=== PATIENT | female | born 1950 | race Caucasian/White ===

== ENCOUNTER 2018-02-24 23:10 | Emergency (ER) | payer OTHER ==
[~2018-02-24] VITALS: Ht 162.6 cm; Wt 69.0 kg
[2018-02-24 23:11] VITALS: BP 161/70; PULSE 57; TEMP 36.4; O2SAT 98; Ht 162.6 cm; Wt 69.0 kg
--- NOTE | 2018-02-24 23:37 | EMERGENCY ROOM VISIT NOTE ---
History Report prepared by Scribe: Brian Loyola Under the Supervision of: Dr. Maryjane Vega D.O. First contact with patient: 23:18 Chief Complaint: BITE Stated Complaint: TICK History of Present Illness The patient is a 67 year old female who presents to the Emergency Room with complaints of episodic tick bite, which she noticed at 2100 today while taking a shower. She was outside this afternoon. [place] [facility]. She notes that the site is red and swollen. She removed part of the insect with a tick twister device. She notes the bite is on her chest on the right side. She denies any history of Lyme disease. She notes that she has been bitten in the past at least twice a year. Source of History: patient Onset: 2099 today Position: chest (right side) Quality: other (swollen and red) Timing: other (episodic) Review of Systems The patient denies any associated symptoms at this time. Past Medical & Surgical Medical Problems: (1) No Known Active Medical Problems Family History No pertinent family history Social History Smoking Status: Never Smoker Housing Status: lives with family Occupation Status: unemployed Allergies Coded Allergies: Penicillins (Verified Allergy, Intermediate, rash, 02/24/18) Physical Exam Vital Signs Date Time Temp Pulse Resp B/P (MAP) Pulse Ox O2 Delivery O2 Flow Rate FiO2 02/24/18 23:11 36.4 57 18 161/70 98 Room Air Physical Exam Right anterior chest wall: remnant portion of tick with some mild surrounding erythema Medical Decision & Procedures ED Course 2318: Past medical records reviewed. The patient was evaluated in room B11B. A complete history and physical exam was performed. The tick was removed with tick twister. The take has not been embedded for more than 8-10 hours. It was not engorged. The patient has had previous tick bites and will watch for signs of erythema migrans. Medical Decision The patient is a 67 year old female who presents to the ED with tick bite. The patient had a portion of a tick embedded in her right anterior chest wall. This was removed with a tick twister. She was encouraged to watch for any further signs of infection. Medication Reconcilliation Current Medication List: was personally reviewed by me Blood Pressure Screening Patient's blood pressure: Elevated blood pressure Blood pressure disposition: Elevated BP felt to be situational Impression Primary Impression: Tick bite Scribe Attestation The scribe's documentation has been prepared under my direction and personally reviewed by me in its entirety. I confirm that the note above accurately reflects all work, treatment, procedures, and medical decision making performed by me. Departure Information Dispostion Home / Self-Care Referrals Alexey Blackburn (PCP) Forms HOME CARE DOCUMENTATION FORM, IMPORTANT VISIT INFORMATION Patient Instructions My [facility] Additional Instructions Watch the wound for signs of infection. Problem Qualifiers Primary Impression: Tick bite Encounter type: initial encounter Qualified Codes: W57.XXXA - Bitten or stung by nonvenomous insect and other nonvenomous arthropods, initial encounter
== END 2018-02-24 23:43 | disposition home or self-care (01) ==
LOC: C.EDB 23:12
DX: S20.361A Insect bite (nonvenomous) of right front wall of thorax, initial encounter (principal); W57.XXXA Bitten or stung by nonvenomous insect and other nonvenomous arthropods, initial encounter; R03.0 Elevated blood-pressure reading, without diagnosis of hypertension; Z88.0 Allergy status to penicillin

== ENCOUNTER 2025-03-03 07:25 | Inpatient (IN) ==
--- NOTE | 2025-03-03 07:56 | Emergency Department Note ---
Impression & Plan Fatigue, Elevated troponin, Ambulatory dysfunction, Generalized weakness ED Provider Note Name: COMPA CALHOUN Age: 74 Sex: Female Arrives Via: Walk-In Informant: Patient, daughter ED Provider: Robert Finley MD Chief Complaint: Generalized weakness Impression: As per impressions above Medical Decision Making: Very pleasant 74-year-old female with history of hypertension hyperlipidemia arrives for evaluation of 2 weeks of rapidly worsening general weakness that had started after an episode of chest pain but she also notes about 2 months of mild weakness as well. She was seen in the ER about a week ago without any acute findings and including an unremarkable troponin. Since then no regular weakness and has even seen cardiology and had outpatient evaluation. Unfortunately weakness continues and she is now to the point where she cannot really even ambulate around her house. On examination she looks well she is in no distress she has normal neurologic findings. There is no focal deficit on examination. Patient does not appear to have significant Guillain-Morales type findings by examination. She had been dealing with pneumonia and had been on azithromycin and prednisone a couple times over the last few months but has no respiratory complaints hypoxia tachycardia or hypotension. She was given a small bolus of IV fluids as she does appear bit on the dehydrated side. Laboratory workup is unremarkable beyond a nonspecific mild elevation in her troponin. EKG is unremarkable. Patient has no shortness of breath hypoxia and had a recent D- dimer which was normal. Will hold off on CT imaging and defer to hospitalist if feel need to proceed. Given these findings I do think it is reasonable to bring patient in for further workup and evaluation and monitoring. Patient discussed with hospitalist service who brought her in for further workup. Triage/Nursing Notes reviewed by Me External Chart Review by me: I reviewed the patient's cardiology appointment from 03/02/2025 discussing plan for echo given concerns for underlying pathology. Differential:Infection, dehydration, metabolic abnormality, hypo/hyperglycemia, electrolyte disturbance, anemia, hypoxia, cardiac sources, intracerebral event, toxicologic, neurologic, as well as other pathologies. Vital Signs: reviewed and remarkable for no significant abnormalities Interventions: Normal saline bolus IV Labs:ED labs Reviewed by me and remarkable for mildly elevated troponin Imaging:Deferred given recent chest x-ray and no recent respiratory complaints EKG:As per my interpretation. Indication weakness. Normal sinus rhythm at 60 bpm QTc of 397. There is no ectopy nor ischemia appreciated. Compared to EKG of February 25, 2025 no significant change. Cardiac/Tele Monitoring: Cardiac Monitoring: An Order was placed for continuous cardiac monitoring. The monitor shows a rate of 60 with a normal sinus rhythm. Consults:Discussed with Dr Verma who will further evaluate and manage Plan: Disposition:Hospitalization. Condition: Fair History of Present Illness: 74-year-old female arrives for evaluation of weakness. Patient notes that over the last 9 weeks she has had gradually worsening weakness. Associated with severe fatigue, exhaustion. Is the point where she has trouble even ambulating around the house the last few days. She was seen by ER, PCP and cardiology without clear etiology. Plan for further follow-up with laboratory testing including Lyme as well as an echo. Patient states that she did have an episode of chest pain about 2 weeks ago that resolved. She had not seen anyone quite at that time though was seen in the ER about a week later. She denies any falls, trauma, injuries though admits that she has had multiple close calls given her weakness though did not actually fall. No new medications other than having started a blood pressure med about a week ago after seeing PCP. No rashes though admits she regularly gets tick bites and was on doxycycline about 6 months ago for possible Lyme disease. Patient admits that she had pneumonia several weeks ago and was on prednisone and azithromycin x 2. Cough has improved though. Patient notes that her appetite has been great over the last year though had actually been eating more while on the prednisone. Past Medical History: Hyperlipidemia, hypertension, Home Medications: Simvastatin, trazodone, blood pressure medicine Allergies: Clindamycin Vitals:Blood Pressure: 156/85, Pulse 71, RR 18, T 36.8C, O2 98% on RA Physical Exam: GENERAL: Patient is anxious/tired appearing and in minimal distress. RESPIRATORY: No dyspnea. Clear to auscultation and equal bilaterally. CARDIOVASCULAR: Regular rate and rhythm.No murmur appreciated. GASTROINTESTINAL: Abdomen soft, non-tender, no peritonitis. EXTREMITIES: Normal motion all extremities, no cyanosis, no edema. NEUROLOGIC: Alert and oriented. No focal neurologic deficits appreciated SKIN: No rash, no jaundice, no diaphoresis. PSYCH: Appropriate GCS: 15 ED Course: Times/Reassessments: Repeat evaluation patient is stable she is laying in bed in really no distress and is agreeable for hospitalization for further workup and evaluation. Robert Finley MD Past Med/Surg History Problem List (Updated 03/04/25 @ 07:17 by Robert Finley MD) Generalized weakness (Acute) Ambulatory dysfunction (Acute) Elevated troponin (Acute) Elevated troponin Pulmonary embolus Anxiety and depression Dyslipidemia Hypertension Anginal equivalent Fatigue (Acute) COFFMAN (dyspnea on exertion) Upper respiratory infection (Acute) Tick bite (Acute) Social History Smoking Status: Never smoker Hx Alcohol Use: Yes Hx Substance Use: No Preferred Language: Mohawk Communication Ability: Effective Material Expeditor Required: No Beliefs That Will Affect Care: None Current Living Situation: Alone Feels Safe at Home: Yes Safety Concerns: Feels Safe At This Time Allergies Allergies Allergy/AdvReac Type Severity Reaction Status Date / Time clindamycin Allergy Hives Verified 03/02/25 12:54 Home Meds Home Medications Medication Instructions Recorded Confirmed cholecalciferol (vitamin D3) 125 125 mcg PO DAILY 06/05/24 03/03/25 mcg (5,000 unit) capsule simvastatin 10 mg tablet 10 mg PO UD 06/05/24 03/03/25 trazodone 50 mg tablet 50 mg PO UD 06/05/24 03/03/25 Blood Pressure 1 tab PO UD 03/03/25 03/03/25 Results & Data (ED) Vital Signs Vital Signs - 24 hr 03/03/25 07:34 03/03/25 07:45 03/03/25 07:45 Temperature 36.8 C Temperature Source Oral Pulse Rate 71 Pulse Rate [Apical] 61 Pulse Rhythm Regular Pulse Strength Normal Respiratory Rate 18 16 Respiratory Effort / Characteristics Non-Labored Spontaneous Non-Labored Spontaneous Respiratory Depth Normal Respiratory Pattern Regular Blood Pressure 156/85 H Blood Pressure [Right Arm] 174/73 H Blood Pressure Mean 108 Blood Pressure Mean [Right Arm] 106 Blood Pressure Position Sitting Pulse Oximetry 98 97 97 Oxygen Delivery Method Room Air Room Air Room Air Sepsis Recent Fever Within 48 Hours No Sepsis New/Unexplained Change in Mental Status No Sepsis Action Taken by Nursing No Action Required 03/03/25 07:45 03/03/25 08:34 03/03/25 09:26 Temperature Temperature Source Pulse Rate 63 Pulse Rate [Apical] 63 Pulse Rhythm Pulse Strength Respiratory Rate 16 Respiratory Effort / Characteristics Non-Labored Spontaneous Non-Labored Spontaneous Respiratory Depth Normal Respiratory Pattern Blood Pressure Blood Pressure [Right Arm] 165/77 H Blood Pressure Mean Blood Pressure Mean [Right Arm] 106 Blood Pressure Position Pulse Oximetry 98 Oxygen Delivery Method Room Air Sepsis Recent Fever Within 48 Hours Sepsis New/Unexplained Change in Mental Status Sepsis Action Taken by Nursing Laboratory Data 03/03/25 07:45 03/03/25 07:45 Lab Results 03/03/25 03/03/25 03/03/25 Range/Units 07:45 07:45 09:04 WBC 12.09 H (4.8-10.8) K/ul RBC 4.95 (4.20-5.40) M/uL Hgb 15.1 (12.0-16.0) g/dl Hct 44.4 (37.0-47.0) % MCV 89.7 (80.0-100.0) fL MCH 30.5 (25.0-34.0) pg MCHC 34.0 (32.0-36.0) g/dL RDW Std Deviation 42.2 (36.4-46.3) fL RDW Coeff of Jason 12.9 (11.5-14.5) % Plt Count 173 (130-400) K/uL MPV 11.0 (9.4-12.4) fL Immature Gran % (Auto) 0.8 % Neut % (Auto) 72.3 % Lymph % (Auto) 16.9 % [place] % (Auto) 7.7 % Eos % (Auto) 1.9 % Baso % (Auto) 0.4 % Neut # (Auto) 8.74 H (1.40-6.50) K/uL Lymph # (Auto) 2.04 (1.20-3.40) K/uL [place] # (Auto) 0.93 H (0.11-0.59) K/uL Eos # (Auto) 0.23 (0.00-0.50) K/uL Baso # (Auto) 0.05 (0.00-0.20) K/uL Immature Gran # (Auto) 0.10 (0.01-0.20) K/uL ESR 2 (0-30) mm/hr D-Dimer 2620 H* (0-500) ug/L FEU Sodium 141 (136-145) mmol/L Potassium 4.2 (3.5-5.1) mmol/L Chloride 107 (98-107) mmol/L Carbon Dioxide 27 (21-32) mmol/L Anion Gap 7 (3-11) BUN 16 (6-23) mg/dl Creatinine 0.99 (0.6-1.2) mg/dl Est Cr Clr Drug Dosing 52.5 ml/min eGFR 59.83 BUN/Creatinine Ratio 16.2 (10-20) Glucose 106 H (70-99(Fasting)) mg/dl Calcium 9.7 (8.6-10.3) mg/dl Magnesium 2.2 (1.7-2.4) mg/dl Total Bilirubin 0.8 (0.2-1.0) mg/dl Direct Bilirubin 0.1 (0-0.2) mg/dl AST 17 (13-39) U/L ALT 20 (7-52) U/L Alkaline Phosphatase 76 (34-104) U/L Troponin I High Sens 22.2 H (0-14) pg/ml C-Reactive Protein < 0.50 (0-0.5) mg/dl B-Natriuretic Peptide 31 (0-100) pg/ml Total Protein 7.1 (6.0-8.3) gm/dl Albumin 4.3 (3.4-5.0) gm/dl Lipase 43 (11-82) U/L Procalcitonin 0.04 (0-0.5) ng/ml TSH 3.119 (0.300-4.500) uIu/ml Urine Color Yellow Urine Appearance Clear (Clear) Urine pH 5.5 (4.5-7.5) Ur Specific [place] 1.011 (1.000-1.030) Urine Protein Negative (Negative) Urine Glucose (UA) Negative (Negative) Urine Ketones Negative (Negative) Urine Blood Negative (Negative) Urine Nitrite Negative (Negative) Urine Bilirubin Negative (Negative) Urine Urobilinogen Negative (Negative) Ur Leukocyte Esterase Trace H (Negative) Urine WBC (Auto) 0-5 (0-5) /hpf Urine RBC (Auto) 0-2 (0-2) /hpf U Hyaline Cast (Auto) 0-2 (0-2) /lpf U Epithel Cells (Auto) 0-2 (0-2) /hpf Urine Bacteria (Auto) None Seen (None Seen) Urine Comment Lyme Disease Screen Cancelled Negative 03/03/25 Range/Units 10:05 WBC (4.8-10.8) K/ul RBC (4.20-5.40) M/uL Hgb (12.0-16.0) g/dl Hct (37.0-47.0) % MCV (80.0-100.0) fL MCH (25.0-34.0) pg MCHC (32.0-36.0) g/dL RDW Std Deviation (36.4-46.3) fL RDW Coeff of Jason (11.5-14.5) % Plt Count (130-400) K/uL MPV (9.4-12.4) fL Immature Gran % (Auto) % Neut % (Auto) % Lymph % (Auto) % [place] % (Auto) % Eos % (Auto) % Baso % (Auto) % Neut # (Auto) (1.40-6.50) K/uL Lymph # (Auto) (1.20-3.40) K/uL [place] # (Auto) (0.11-0.59) K/uL Eos # (Auto) (0.00-0.50) K/uL Baso # (Auto) (0.00-0.20) K/uL Immature Gran # (Auto) (0.01-0.20) K/uL ESR (0-30) mm/hr D-Dimer (0-500) ug/L FEU Sodium (136-145) mmol/L Potassium (3.5-5.1) mmol/L Chloride (98-107) mmol/L Carbon Dioxide (21-32) mmol/L Anion Gap (3-11) BUN (6-23) mg/dl Creatinine (0.6-1.2) mg/dl Est Cr Clr Drug Dosing ml/min eGFR BUN/Creatinine Ratio (10-20) Glucose (70-99(Fasting)) mg/dl Calcium (8.6-10.3) mg/dl Magnesium (1.7-2.4) mg/dl Total Bilirubin (0.2-1.0) mg/dl Direct Bilirubin (0-0.2) mg/dl AST (13-39) U/L ALT (7-52) U/L Alkaline Phosphatase (34-104) U/L Troponin I High Sens 47.1 H D (0-14) pg/ml C-Reactive Protein (0-0.5) mg/dl B-Natriuretic Peptide (0-100) pg/ml Total Protein (6.0-8.3) gm/dl Albumin (3.4-5.0) gm/dl Lipase (11-82) U/L Procalcitonin (0-0.5) ng/ml TSH (0.300-4.500) uIu/ml Urine Color Urine Appearance (Clear) Urine pH (4.5-7.5) Ur Specific [place] (1.000-1.030) Urine Protein (Negative) Urine Glucose (UA) (Negative) Urine Ketones (Negative) Urine Blood (Negative) Urine Nitrite (Negative) Urine Bilirubin (Negative) Urine Urobilinogen (Negative) Ur Leukocyte Esterase (Negative) Urine WBC (Auto) (0-5) /hpf Urine RBC (Auto) (0-2) /hpf U Hyaline Cast (Auto) (0-2) /lpf U Epithel Cells (Auto) (0-2) /hpf Urine Bacteria (Auto) (None Seen) Urine Comment Lyme Disease Screen Administered Medications Apixaban (Apixaban 5 Mg Tablet) 10 mg PO BID [facility] Stop: 03/09/25 21:01 Last Admin: 03/03/25 20:35 Dose: 10 mg Documented By: Admin: 03/03/25 13:10 Dose: 10 mg Documented By: HERMINIO Lisinopril (Lisinopril 10 Mg Tab) 10 mg PO [facility] Stop: 04/02/25 11:46 Last Admin: 03/03/25 13:11 Dose: 10 mg Documented By: HERMINIO Metoprolol Succinate (Metoprolol Succ 25mg Ext Rel Tab) 12.5 mg PO [facility] Stop: 04/02/25 11:46 Last Admin: 03/03/25 13:10 Dose: 12.5 mg Documented By: HERMINIO Simvastatin (Simvastatin 10 Mg Tab) 10 mg PO [facility] Stop: 04/02/25 20:59 Last Admin: 03/03/25 20:35 Dose: 10 mg Documented By: LUCIAN Trazodone HCl (Trazodone Hcl 50 Mg Tab) 50 mg PO [facility] Stop: 04/02/25 20:59 Last Admin: 03/03/25 20:35 Dose: 50 mg Documented By: LUCIAN Discontinued Medications Enoxaparin Sodium (Enoxaparin Inj 40 Mg/0.4 Ml Syr) 40 mg SQ Q24H [facility] Stop: 04/02/25 11:46 Last Admin: 03/03/25 12:58 Dose: Not Given Documented By: HERMINIO Ioversol (Optiray 320 125ml) 112 ml IV ONCE ONE Stop: 03/03/25 11:25 Last Admin: 03/03/25 11:25 Dose: 112 ml Documented By: SESandy Discharge Plan Visit Data Chief Complaint: Shortness of Breath/Dyspnea Stated Complaint: SOB,WEAKNESS ED Provider: Robert Finley Discharge Problem: Fatigue, Elevated troponin, Ambulatory dysfunction, Generalized weakness Patient Disposition: Admitted As Inpatient Condition: Fair Discharge Instructions Interventions: ED Discharge Assessment Last Done: 03/03/25 11:24 Discharge Problem: Fatigue Qualifiers: Fatigue type: unspecified Qualified Code(s): R53.83 - Other fatigue
[2025-03-03 08:26] LABS: Hematocrit (blood only) 44.4 % (37.0-47.0); Hemoglobin 15.1 g/dl (12.0-16.0); Mean Corpuscular Hemoglobin 30.5 pg (25.0-34.0); Mean Corpuscular Volume 89.7 fL (80.0-100.0); Platelet Count 173 K/uL (130-400); RDW Coefficient of Variation 12.9 % (11.5-14.5); RDW Standard Deviation 42.2 fL (36.4-46.3); Red Blood Count 4.95 M/uL (4.20-5.40); White Blood Count 12.09 K/ul (4.8-10.8)
--- NOTE | 2025-03-03 08:35 | CT Scan Report ---
Clinical History: Weakness. Technique: Axial computed tomography images were obtained of the brain from the vertex to the skull base without intravenous contrast. Findings: There is no sign of intracranial hemorrhage. There is normal dorantes-white matter differentiation with no sign of acute or old infarction. No midline shift or other form of herniation is identified. There is no hydrocephalus. No obvious mass lesion is seen on this noncontrast examination. The visualized portions of the orbits and paranasal sinuses appear unremarkable. The mastoid air cells appear clear Impression: Unremarkable noncontrast CT of the brain Electronically signed by Nilesh Randall 03-03-2025 08:35 AM
[2025-03-03 08:49] LABS: Basophils # (auto) 0.05 K/uL (0.00-0.20); Basophils % (auto) 0.4 %; Eosinophils # (auto) 0.23 K/uL (0.00-0.50); Eosinophils % (auto) 1.9 %; Immature Granulocytes % (auto) 0.8 %; Lymphocytes # (auto) 2.04 K/uL (1.20-3.40); Lymphocytes % (auto) 16.9 %; Monocytes # (auto) 0.93 K/uL (0.11-0.59); Monocytes % (auto) 7.7 %; Neutrophils # (auto) 8.74 K/uL (1.40-6.50); Neutrophils % (auto) 72.3 %; Thyroid Stimulating Hormone 3.119 uIu/ml (0.300-4.500); Troponin I High Sensitivity 22.2 pg/ml (0-14)
[2025-03-03 08:55] LABS: Alanine Aminotransferase 20 U/L (7-52); Albumin Level 4.3 gm/dl (3.4-5.0); Alkaline Phosphatase 76 U/L (34-104); Anion Gap 7 (3-11); Aspartate Aminotransferase 17 U/L (13-39); BUN Creatinine Ratio 16.2 (10-20); Bilirubin Direct 0.1 mg/dl (0-0.2); Bilirubin,Total 0.8 mg/dl (0.2-1.0); Blood Urea Nitrogen 16 mg/dl (6-23); C Reactive Protein < 0.50 mg/dl (0-0.5); Calcium 9.7 mg/dl (8.6-10.3); Carbon Dioxide 27 mmol/L (21-32); Chloride 107 mmol/L (98-107); Creatinine Clr Calc Pharmacy 52.5 ml/min; Glucose 106 mg/dl (70-99(Fasting)); Lipase 43 U/L (11-82); Magnesium 2.2 mg/dl (1.7-2.4); Potassium 4.2 mmol/L (3.5-5.1); Sodium 141 mmol/L (136-145); Total Protein 7.1 gm/dl (6.0-8.3)
[2025-03-03 09:21] LABS: Appearance Urine Clear (Clear); Bacteria Urine Automated None Seen (None Seen); Bilirubin Urine Negative (Negative); Blood Urine Negative (Negative); Cast Urine Automated 0-2 /lpf (0-2); Color Urine Yellow; Epithelial Cell Urine Auto 0-2 /hpf (0-2); Glucose Urine UA Negative (Negative); Ketones Urine Negative (Negative); Leukocyte Esterase Urine Trace (Negative); Nitrite Urine Negative (Negative); Protein Urine Negative (Negative); RBC Urine Automated 0-2 /hpf (0-2); Specific Gravity Urine 1.011 (1.000-1.030); Urobilinogen Urine Negative (Negative); WBC Urine Automated 0-5 /hpf (0-5); pH Urine 5.5 (4.5-7.5)
[2025-03-03 09:53] LABS: Procalcitonin 0.04 ng/ml (0-0.5)
[2025-03-03 10:18] LABS: Lyme Screen Rflx Confirmation Negative (Negative)
--- NOTE | 2025-03-03 10:22 | History & Physical Report ---
Date of Service March 03, 2025 Assessment & Plan (1) Anginal equivalent: (2) COFFMAN (dyspnea on exertion): (3) Hypertension: (4) Dyslipidemia: (5) Anxiety and depression: Plan Patient is a 74-year-old female who presents with progressive dyspnea on exertion over the last multiple weeks. She has had a slight increase in her troponin, raising concerns that this may be an anginal equivalent for her. Patient is at significant risk for MACE based on history and clinical presenta tion. Requires hospital level care, evaluation and specialty consultation Admit to monitored setting Echocardiogram Trend troponins Consult cardiology for further recommendations on ischemic eval. Patient recently saw [facility] cardiology this past week. Patient is not hypoxic but does describe shortness of breath, will check a D- dimer, if that significantly elevated would proceed to CTA to rule out PE Patient reports that she is on metoprolol just started this week for hypertension. She is borderline bradycardic, will see if she can tolerate low- dose Toprol XL for blood pressure control Lisinopril for blood pressure control Check lipid panel Recheck labs in a.m. Therapy evaluation for patient's complaint of severe weakness with activity Case management Discussed advanced directives, she states that she would want full resuscitation and mechanical ventilation if required. However would not want to be on a ventilator for prolonged period of time. History of Present Illness Chief Complaint: Shortness of breath with exertion and severe, profound weakness Primary Care Provider: Grecia Aguilera MD Patient is a 74-year-old female who over the last 2 to 3 months has had progressive dyspnea on exertion. This is resulted in severe weakness with any type of activity to the point where she really can hardly manage her ADLs at home. She has been seen by multiple providers over the last couple of months. She has been treated for bronchitis and pneumonia with antibiotics. She was started on metoprolol for blood pressure management. She was just seen by [facility] cardiology this week for similar complaints and they recommended outpatient echocardiogram. This has not yet been performed. Came to the emergency room today simply because she could no longer get herself around in her home to prepare meals get dressed, bathe etc. In the emergency department workup was really unremarkable. Her troponin was very slightly elevated out of normal range and slightly elevated from troponin done a couple weeks ago. With these symptoms and findings she was referred to our service for further evaluation. Time my evaluation patient denies any chest pain or shortness of breath. She really states that it is shortness of breath on exertion that is her main complaint. It seems that this leads to everything else. She says she gets weak her hands get shaky her legs get shaky and has an overwhelming sense o f weakness and fatigue. She states that this always occurs with any activity. And the amount of activity that is required to cause the symptoms has gotten less and less over the last several weeks. She denies any real chest pain or pressure. No fever or chills. No cough or cold symptoms. No new problems with the bowels or bladder. No swelling in her hands arms legs or feet. She states that when she rests the shortness of breath goes away and her symptoms recover. She states she really never gets the symptoms when she is sitting or resting in bed. She does have a family history of coronary artery disease. States that her father had a heart attack and CHF. Her mother had a stroke and she believes she may have had a heart attack as well. She has never been diagnosed with any heart disease herself. Just within the last week she was started on some blood pressure medication she reports that she was started on some metoprolol. She has been on Zocor for dyslipidemia. She takes a medicine for reflux and trazodone for some anxiety and depression at bedtime. Allergies Allergy/AdvReac Type Severity Reaction Status Date / Time clindamycin Allergy Hives Verified 03/02/25 12:54 Home Medications Medication Instructions Recorded Confirmed Type cholecalciferol (vitamin D3) 125 125 mcg PO DAILY 06/05/24 03/03/25 History mcg (5,000 unit) capsule simvastatin 10 mg tablet 10 mg PO UD 06/05/24 03/03/25 History trazodone 50 mg tablet 50 mg PO UD 06/05/24 03/03/25 History Blood Pressure 1 tab PO UD 03/03/25 03/03/25 History Past Med/Surg History Problem List (Updated 03/03/25 @ 10:24 by Coy Verma DO) Anxiety and depression Dyslipidemia Hypertension Anginal equivalent Fatigue COFFMAN (dyspnea on exertion) Upper respiratory infection (Acute) Tick bite (Acute) Social History Smoking Status: Never smoker Preferred Language: Somali Feels Safe at Home: Yes Review of Systems Review of Systems: Pertinent positive and negative review of systems as mentioned in the HPI Physical Exam Physical Exam: Constitutional: Alert, no distress, nontoxic HEENT: Mucous membranes moist. Sclera clear Neck: Soft, no adenopathy Lungs: Clear to auscultation, decreased, no wheezes rales or rhonchi CV: S1-S2, regular, no significant murmur Abdomen: Soft, nontender, nondistended Extremities: Trace pretibial edema Musculoskeletal: No significant joint tenderness Neuro: No focal deficits, generalized weakness Psych: Cooperative, normal mood Results & Data Results & Data Vital Signs (Past 12 Hours) Vital Signs Temp Pulse Pulse Resp BP BP Pulse Ox 03/03/25 09:26 63 16 165/77 H 98 03/03/25 08:34 63 03/03/25 07:45 61 16 174/73 H 97 03/03/25 07:45 97 03/03/25 07:34 36.8 C 71 18 156/85 H 98 O2 Del Method 03/03/25 09:26 Room Air 03/03/25 08:34 03/03/25 07:45 Room Air 03/03/25 07:45 Room Air 03/03/25 07:34 Room Air Diagnostic Findings Reviewed imaging, laboratory and diagnostic studies. Pertinent findings as below. 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 Code Status & VTE Plan VTE Prophylaxis Plan VTE Prophylaxis will be ordered: Yes
[2025-03-03 11:13] LABS: D Dimer 2620 ug/L FEU (0-500)
--- NOTE | 2025-03-03 12:13 | CT Scan Report ---
Clinical history: Weakness and shortness of breath Technique: Axial computed tomography images were obtained of the chest after the administration of intravenous contrast according to the CT angiogram protocol Findings: There are segmental and subsegmental emboli involving the right lower lobe and to a lesser extent the lingula. There is mild dependent subsegmental atelectasis in both lower lobes and also in the lingula. There is no pleural effusion or pneumothorax. There is no sign of pulmonary fibrosis or other diffuse interstitial process. No endobronchial lesion is seen There is no mediastinal, hilar, or axillary adenopathy. The thoracic aorta appears unremarkable with no sign of aneurysm or dissection. There is no pericardial effusion There is a small hiatal hernia. No fracture is seen. No focal osseous lesion is evident Impression: 1. Small amount of peripheral pulmonary embolism involving the right lower lobe and lingula 2. No definite sign of associated right heart strain 3. Mild bilateral lung base atelectasis ACT 112: Positive. There are findings on this exam that require communication between the performing entity and the patient following Patient Test Result Information Act ([place] ACT 112) guidelines. Electronically signed by Nilesh Randall 03-03-2025 12:13 PM
--- NOTE | 2025-03-03 14:35 | Electrocardiogram Report ---
Test Reason : Blood Pressure : */* mmHG Vent. Rate : 68 BPM Atrial Rate : 68 BPM P-R Int : 124 ms QRS Dur : 80 ms QT Int : 374 ms P-R-T Axes : 10 -11 -1 degrees QTcB Int : 397 ms Normal sinus rhythm Inferior infarct , age undetermined Abnormal ECG When compared with ECG of 25-Feb-2025 18:55, No significant change was found Prior ECG leads V2 and V3 are reversed Confirmed by Maria Luisa Spangler ([id number]) on 03/03/2025 2:34:50 PM Referred By: Confirmed By: Maria Luisa Spangler
--- NOTE | 2025-03-03 16:02 | Cardiology Consultation ---
Date of Consultation March 03, 2025 Assessment & Plan (1) Pulmonary embolus: (2) COFFMAN (dyspnea on exertion): (3) Elevated troponin: Plan ?unprovoked PE-discussed that she will need AC for at least 6 months. I am not sure if the preceeding URI and being ill is enough reason for PE to have occurred. She has not had Prior DVT/PE Will check ECHO to assess RV function and PA pressures. if this is unremarkable, she will likely be able to be DC in next 24 hours. History of Present Illness Reason for Consultation: eval chest pain Attending Physician: Coy Verma DO History of Present Illness 74-year-old female seen by Dr. Odell earlier this week for chest pain and shortness of breath. Unfortunately, he had very limited records of this patient. She tells me that 2 to 3 weeks ago she had chest pain radiating up into her bilateral neck. This lasted about 40 minutes. She did not seek medi susu attention. However, she was not feeling well for a while and was diagnosed with bronchitis. Placed on antibiotics (Z-Izaiah). Seems that she did not improve much and again was placed on antibiotics and prednisone. This past Wednesday she went to the emergency room for shortness of breath and workup was fairly unremarkable. She had been scheduled to see me in March but this was bumped up to today. Patient also tells me that she has had multiple tick bites over the years. Has had a bull's-eye rash and treated with doxycycline in the past. She admits this past fall she had a single tick bite which she felt "I got out in time". She never developed a bull's-eye rash and did not take any antibiotics. She tells me her primary care provider recently ordered a Lyme titer (yesterday) but we do not have results at this time. Currently, patient is having no chest pain heaviness or tightness with exertion. However, she notes profound fatigue and is having dyspnea on exertion ambulating only 15 to 20 feet. These are new for her over the past several weeks. She denies any fevers. She has had a cough but not currently productive of any sputum. She denies syncope, near syncope, orthopnea, PND, racing heartbeat, palpitations, or edema. She does not smoke. She has a family history of coronary disease and congestive heart failure. Father had CAD and at age 84. Also with congestive heart failure. Mother had CAD but at age 91. In the ER ECG showed NSR at 68 without acute changes similar to ECG from 02/25/25. D dimer came back very high. CTA chest done showing small segmental and subsegmental pulmonary emboli involving the right lower lobe. ECHO done shows no acute changes. Unfortunately admit D dimer was very high leading to CTA chest which shows right multiple segmental PE. Since starting treatment with IV heparin and NOAC, her CP has resolved. Allergies Allergy/AdvReac Type Severity Reaction Status Date / Time clindamycin Allergy Hives Verified 03/02/25 12:54 Home Medications Medication Instructions Recorded Confirmed Type cholecalciferol (vitamin D3) 125 125 mcg PO DAILY 06/05/24 03/03/25 History mcg (5,000 unit) capsule simvastatin 10 mg tablet 10 mg PO UD 06/05/24 03/03/25 History trazodone 50 mg tablet 50 mg PO UD 06/05/24 03/03/25 History Blood Pressure 1 tab PO UD 03/03/25 03/03/25 History metoprolol succinate 25 mg capsule 12.5 mg PO DAILY 03/04/25 03/04/25 History sprinkle, ext. release 24 hr Patient History Social History Smoking Status: Never smoker Hx Alcohol Use: Yes Hx Substance Use: No Preferred Language: Indonesian Communication Ability: Effective Sliding Joint Maker Required: No Beliefs That Will Affect Care: None Current Living Situation: Alone Feels Safe at Home: Yes Review of Systems Review of Systems: All systems reviewed & are unremarkable except as noted in HPI & below Physical Exam Physical Exam: in NAD Respiratory: CTA b/l Cardiovascular: no edema Results & Data Vital Signs (Past 12 Hours) Vital Signs Temp Pulse Pulse Pulse Resp BP BP 03/03/25 15:34 36.7 C 69 18 115/68 03/03/25 13:02 80 03/03/25 11:55 61 03/03/25 11:54 36.7 C 65 18 166/81 H 03/03/25 11:54 36.7 C 65 18 166/81 H 03/03/25 11:47 03/03/25 11:00 61 16 162/68 H 03/03/25 09:26 63 16 165/77 H 03/03/25 08:34 63 03/03/25 07:45 61 16 174/73 H 03/03/25 07:45 03/03/25 07:34 36.8 C 71 18 156/85 H Pulse Ox Pulse Ox O2 Del Method O2 Del Method 03/03/25 15:34 98 Room Air 03/03/25 13:02 03/03/25 11:55 03/03/25 11:54 97 Room Air 03/03/25 11:54 97 Room Air 03/03/25 11:47 97 Room Air 03/03/25 11:00 98 Room Air 03/03/25 09:26 98 Room Air 03/03/25 08:34 03/03/25 07:45 97 Room Air 03/03/25 07:45 97 Room Air 03/03/25 07:34 98 Room Air Laboratory Results Abnormal lab results 03/03/25 03/03/25 03/03/25 Range/Units 07:45 09:04 10:05 WBC 12.09 H (4.8-10.8) K/ul Neut # (Auto) 8.74 H (1.40-6.50) K/uL [place] # (Auto) 0.93 H (0.11-0.59) K/uL D-Dimer 2620 H* (0-500) ug/L FEU Glucose 106 H (70-99(Fasting)) mg/dl Troponin I High Sens 22.2 H 47.1 H D (0-14) pg/ml Ur Leukocyte Esterase Trace H (Negative) Diagnostic Findings ECHO as above ECG Additional Comments: NSR no acute changes
--- NOTE | 2025-03-04 00:45 | Ultrasound Report ---
Exam(s): US VENOUS BILATERAL LOWER EXTREMITIES EXAM: US Duplex Bilateral Lower Extremities Veins CLINICAL HISTORY: dvt. TECHNIQUE: Real-time duplex ultrasound scan of the bilateral lower extremity veins integrating B-mode two-dimensional vascular structure, Doppler spectral analysis, color flow Doppler imaging and compression. COMPARISON: No relevant prior studies available. FINDINGS: Right deep veins: Unremarkable. No DVT in the right common femoral, femoral, proximal deep femoral or popliteal veins. The veins demonstrate normal color flow, are normally compressible, with normal phasic flow and/or augmentation response. The interrogated calf veins are patent. Right superficial veins: Unremarkable. No thrombus in the saphenofemoral junction. Left deep veins: Unremarkable. No DVT in the left common femoral, femoral, proximal deep femoral or popliteal veins. The veins demonstrate normal color flow, are normally compressible, with normal phasic flow and/or augmentation response. The interrogated calf veins are patent. Left superficial veins: Unremarkable. No thrombus in the saphenofemoral junction. Soft tissues: No acute findings. No popliteal cyst. IMPRESSION: No evidence for deep thrombosis involving the bilateral lower extremities. Electronically signed by: Ascencion Olivas MD 03/04/25 00:44 AM
[2025-03-04 07:18] LABS: Basophils # (auto) 0.04 K/uL (0.00-0.20); Basophils % (auto) 0.4 %; Eosinophils # (auto) 0.19 K/uL (0.00-0.50); Hematocrit (blood only) 39.7 % (37.0-47.0); Hemoglobin 13.2 g/dl (12.0-16.0); Immature Granulocytes # (auto) 0.08 K/uL (0.01-0.20); Immature Granulocytes % (auto) 0.8 %; Lymphocytes # (auto) 1.87 K/uL (1.20-3.40); Lymphocytes % (auto) 19.3 %; Mean Corpuscular Hemoglobin 30.3 pg (25.0-34.0); Mean Corpuscular Hgb Conc 33.2 g/dL (32.0-36.0); Mean Corpuscular Volume 91.1 fL (80.0-100.0); Mean Platelet Volume 10.4 fL (9.4-12.4); Monocytes # (auto) 0.82 K/uL (0.11-0.59); Monocytes % (auto) 8.4 %; Neutrophils # (auto) 6.71 K/uL (1.40-6.50); Neutrophils % (auto) 69.1 %; Platelet Count 163 K/uL (130-400); RDW Standard Deviation 43.4 fL (36.4-46.3); Red Blood Count 4.36 M/uL (4.20-5.40); White Blood Count 9.71 K/ul (4.8-10.8)
[2025-03-04 07:55] LABS: BUN Creatinine Ratio 23.7 (10-20); Creatinine Clr Calc Pharmacy 50.6 ml/min; Magnesium 2.3 mg/dl (1.7-2.4); Potassium 4.2 mmol/L (3.5-5.1)
--- NOTE | 2025-03-04 10:20 | Discharge Summary ---
Discharge Summary Date of Service March 04, 2025 Principal Dx & Hospital Course #1 = Principal Diagnosis (1) COFFMAN (dyspnea on exertion): (2) Pulmonary embolus: (3) Elevated troponin: (4) Hypertension: (5) Dyslipidemia: (6) Anxiety and depression: Plan Patient is a 74-year-old female who presents with progressive dyspnea on exertion over the last multiple weeks and was found to have peripheral R sided PE. Was seen by [facility] earlier this week for COFFMAN but euvolemic, tick serology negative. Presented yesterday to ED with continued COFFMAN but saturating at 96% on room air. Elevated D-dimer and CTA chest with small amount of peripheral pulmonary embolism involving the right lower lobe and lingula. No definite sign of associated right heart strain. Troponin mildly elevated but no chest pain or acute ECG changes. Echo performed and report pending. Venous doppler of BLE negative for DVT. Suspect PE provoked in setting of recent immobilization 2/2 illness. Patient has remained on room air throughout hospitalization and is ambulating independently in room. Was recently started on low dose Toprol for elevated BP but while admitted BP on lower end of normal with mild bradycardia. Recommended holding Toprol for now until follow up with Dr. Aguilera on 03/08 when she can reassess need for ongoing Toprol. Suspect BP elevated last week in setting of undiagnosed PE and now improving. Lipid panel within range. Discharging home on Eliquis for at least 3 months duration with instruction to follow up with Dr. Aguilera for further discussion. Patient comfortable and hemodynamically stable at time of discharge home. Notes For Next Care Provider Small peripheral R sided PE, likely provoked with recent immobility 2/2 illness, dc on Eliquis with PCP follow up on 03/08 Medication Changes From Visit Continue Eliquis, hold Toprol until PCP follow up due to relatively low BP, bradycardia Admission HPI Per Admitting Provider Patient is a 74-year-old female who over the last 2 to 3 months has had progressive dyspnea on exertion. This is resulted in severe weakness with any type of activity to the point where she really can hardly manage her ADLs at home. She has been seen by multiple providers over the last couple of months. She has been treated for bronchitis and pneumonia with antibiotics. She was started on metoprolol for blood pressure management. She was just seen by [facility] cardiology this week for similar complaints and they recommended outpatient echocardiogram. This has not yet been performed. Came to the emergency room today simply because she could no longer get herself around in her home to prepare meals get dressed, bathe etc. In the emergency department workup was really unremarkable. Her troponin was very slightly elevated out of normal range and slightly elevated from troponin done a couple weeks ago. With these symptoms and findings she was referred to our service for further evaluation. Time my evaluation patient denies any chest pain or shortness of breath. She really states that it is shortness of breath on exertion that is her main complaint. It seems that this leads to everything else. She says she gets weak her hands get shaky her legs get shaky and has an overwhelming sense of weakness and fatigue. She states that this always occurs with any activity. And the amount of activity that is required to cause the symptoms has gotten less and less over the last several weeks. She denies any real chest pain or pressure. No fever or chills. No cough or cold symptoms. No new problems with the bowels or bladder. No swelling in her hands arms legs or feet. She states that when she rests the shortness of breath goes away and her symptoms recover. She states she really never gets the symptoms when she is sitting or resting in bed. She does have a family history of coronary artery disease. States that her father had a heart attack and CHF. Her mother had a stroke and she believes she may have had a heart attack as well. She has never been diagnosed with any heart disease herself. Just within the last week she was started on some blood pressure medication she reports that she was started on some metoprolol. She has been on Zocor for dyslipidemia. She takes a medicine for reflux and trazodone for some anxiety and depression at bedtime. Admission Exam Per Admitting Provider Constitutional: Alert, no distress, nontoxic HEENT: Mucous membranes moist. Sclera clear Neck: Soft, no adenopathy Lungs: Clear to auscultation, decreased, no wheezes rales or rhonchi CV: S1-S2, regular, no significant murmur Abdomen: Soft, nontender, nondistended Extremities: Trace pretibial edema Musculoskeletal: No significant joint tenderness Neuro: No focal deficits, generalized weakness Psych: Cooperative, normal mood Discharge Exam Gen: WD/WN, NAD, sitting in bedside chair, A&Ox3 HEENT: Normocephalic, atraumatic, conjunctivae moist, sclerae anicteric, mucous membranes moist Lung: Clear to Auscultation bilaterally, no wheezes/rales/rhonchi Heart: Regular rate, regular rhythm Abdomen: Soft, NT, ND +BS x 4 Extremities: no edema, + teds Skin: Warm, no rash Updated Medication List Medication Instructions Recorded Confirmed Type cholecalciferol (vitamin D3) 125 125 mcg PO DAILY 06/05/24 03/03/25 History mcg (5,000 unit) capsule simvastatin 10 mg tablet 10 mg PO UD 06/05/24 03/03/25 History trazodone 50 mg tablet 50 mg PO UD 06/05/24 03/03/25 History Blood Pressure 1 tab PO UD 03/03/25 03/03/25 History metoprolol succinate 25 mg capsule 12.5 mg PO DAILY 03/04/25 03/04/25 History sprinkle, ext. release 24 hr Hospital Stay Data Consultations 03/03/25 09:06 ED Decision to Admit Stat 03/03/25 11:47 Consult Cardiology Routine Diagnostic Imagining Performed 03/03/25 07:53 CT head/brain wo con Stat 03/03/25 11:13 CT angio chest PE protocol Stat 03/03/25 12:39 US venous doppler LE BI Routine Pending Results Patient Have Any Pending Studies at Discharge: No Discharge Instructions Given to Patient (Per Discharging Provider) MEDICATION CHANGES: Eliquis 10mg twice a day for 6 days and then 5mg twice a day x at least 3 months Please hold your new blood pressure medication (metoprolol) until follow up with Dr. Aguilera next week. SUMMARY OF TEST RESULTS: You were admitted to hospital for shortness of breath. Chest CTA shows small amount of peripheral pulmonary embolism involving the right lower lobe and lingula Venous doppler ultrasound does not show evidence for deep thrombosis involving the bilateral lower extremities. PENDING TEST RESULTS: None RECOMMENDATIONS FOR FOLLOW-UP: Follow up with PCP as scheduled on 03/08. Continue medication regimen as scheduled aside from changes noted above. OTHER INSTRUCTIONS: Seek medical attention if you have: * temperature above 101 * chest pain or trouble breathing * abdominal pain, nausea, vomiting * diarrhea, dark stools or bloody stools * any unanswered questions or concerns Call 911 if symptoms are severe. Please take good care of yourself. Call if you have any questions or problems. You can reach a [facility] hospitalist on duty at [facility] 24 hours a day by calling [phone]. Total Time Total Time Spent Total Time Spent (In Minutes): 40 Supervising Physician Co-Signing Physician Notes Patient seen and examined at bedside. Patient feels well and wants to go home. On exam, no dyspnea, sitting comfortably on room air. 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 PESI score of 74, low risk PE. Will need coagulation workup in 3 months once out of acute phase of illness. I have seen and discussed the case with the collaborating advanced practitioner. I agree with the above H&P. I have reviewed and confirmed the patients medical history, the findings on physical examination, and the patients diagnosis and treatment plan with Poly Falcon PA-C and agree with the information documented. I spent a total of 30 minutes coordinating, documenting, and providing care for this patient excluding time spent in the performance of separately billed services. All of the aforementioned completed outside of collaborating with the assigned advanced practitioner for a full treatment plan. I have reviewed the advanced practitioner's documentation, and I agree with, and take responsibility for the plan of care
== END 2025-03-04 12:08 | disposition home or self-care (01) ==
LOC: ED 07:25 → SUATTDRO 10:15 → 2N 10:15